=== PATIENT | female | born 1955 | race Caucasian/White ===

== ENCOUNTER 2017-02-02 07:38 | Outpatient (CLI) | payer OTHER | END 2017-02-02 07:55 | disposition home or self-care (01) | LOC: NUCLEAR 07:38 | DX: I11.9 Hypertensive heart disease without heart failure (principal); I20.0 Unstable angina | CPT/HCPCS: A9500; 93017; 78452 ==

== ENCOUNTER → 2020-03-08 | Outpatient (CLI) | payer OTHER ==
[~2020-03-08] MED LIST: CIPRO500 MG PO; MULTI VITAMIN1 EACH PO; PROGESTERO50 MG/1 M1 IM; VITAMIN C500 M6 PO; ZINC50 M1 PO
== END | disposition home or self-care (01) ==
LOC: RAD 10:31
PROVIDERS: ATTEND Urology
DX: N20.1 Calculus of ureter (principal); J44.9 Chronic obstructive pulmonary disease, unspecified

== ENCOUNTER 2020-03-10 05:53 | Day surgery (SDC) | payer OTHER | END 2020-03-10 14:10 | disposition home or self-care (01) | LOC: CIR.AMB 05:53 | PROVIDERS: ATTEND Urology | DX: N20.1 Calculus of ureter (principal); Z20.828 Contact with and (suspected) exposure to other viral communicable diseases ==

== ENCOUNTER 2020-03-11 11:29 | Emergency (ER) | payer OTHER ==
[~2020-03-11] VITALS: Ht 165.1 cm; Wt 65.8 kg
== END 2020-03-11 15:06 | disposition home or self-care (01) ==
LOC: ER 11:29
DX: M94.0 Chondrocostal junction syndrome [Tietze] (principal); R07.89 Other chest pain

== ENCOUNTER → 2020-03-22 | Outpatient (CLI) | payer OTHER | END | disposition home or self-care (01) | LOC: RAD 12:09 | PROVIDERS: ATTEND Urology | DX: N20.0 Calculus of kidney (principal) ==

== ENCOUNTER 2020-06-11 07:58 | Outpatient (CLI) | payer OTHER | END 2020-06-11 08:02 | disposition home or self-care (01) | LOC: NUCLEAR 07:58 | PROVIDERS: ATTEND Internal Medicine Cardiovascular Disease | DX: R07.89 Other chest pain (principal) | CPT/HCPCS: 78452; 93017; A9500; J0153 ==